=== PATIENT | female | born 1990 | race Caucasian/White ===

== ENCOUNTER 2017-04-09 09:11 | Emergency (ER) | payer OTHER ==
[~2017-04-09] VITALS: Ht 162.6 cm; Wt 132.0 kg
[~2017-04-09 09:11] MED LIST: DOCU-138 PO; FERR-63 PO; IBUP-779 PO
[2017-04-09 10:30] LABS: CLARITY URINE CLOUDY (CLEAR); COLOR URINE DARK YELLOW (YELLOW); GLUCOSE URINE NEGATIVE (NEGATIVE); KETONES URINE NEGATIVE (NEGATIVE); LEUKOCYTE ESTERASE URINE 3+ (NEGATIVE); NITRITE URINE NEGATIVE (NEGATIVE); OCCULT BLOOD URINE 3+ (NEGATIVE); PROTEIN URINE TRACE (NEGATIVE); UROBILINOGEN URINE 0.2 E.U./dL (0.2-1.0)
[2017-04-09 11:02] VITALS: BP 134/80
== END 2017-04-09 11:04 | disposition home or self-care (01) ==
LOC: ER 09:44
DX: N39.0 Urinary tract infection, site not specified (principal)
CPT/HCPCS: 81001; 81025; 99283; Z7610

== ENCOUNTER 2018-11-17 07:44 | Inpatient (IN) | payer MEDICAID ==
[~2018-11-17] VITALS: Ht 162.6 cm; Wt 142.9 kg
[2018-11-17] MEDS ORDERED: LACTATED RINGERS 1,000 ML IV SCH (08:15)
[2018-11-17 08:44] LABS: UCG SCREEN NEGATIVE
[2018-11-17] MEDS ORDERED: AMLO10TA80 PO (10:20)
[2018-11-17] MEDS ORDERED: HYDR25TA PO (10:20)
[2018-11-17] MEDS ORDERED: CEFOXITIN SODIUM 2 G in DEXT 5% WATER 100 ML IV STA (10:42)
[2018-11-17] MEDS ORDERED: INDOCYANINE GREEN 25 MG VIAL IV ONE (10:53)
[2018-11-17] MEDS ORDERED: LIDOCAINE HCL 1% 20ML VIAL (Pyxis) INJ ONE ×2 (10:53→11:39)
[2018-11-17] MEDS ORDERED: SKIN ADHESIVE 0.7 GM EA TOP ONE (10:53)
[2018-11-17] MEDS ORDERED: BACITRACIN 50,000 UNITS/VIAL ONE (10:53)
[2018-11-17] MEDS ORDERED: BUPIVACAINE HCL/PF 0.5% (5MG/ML) 10ML ONE (10:53)
[2018-11-17] MEDS ORDERED: NORMAL SALINE 0.9% 10 ML SYR ONE (10:53)
[2018-11-17] MEDS ORDERED: FENTANYL CITRATE/PF 50MCG/ML 2ML VIAL ONE (11:38)
[2018-11-17] MEDS ORDERED: PROPOFOL 200MG/20ML VIAL IV ONE (11:38)
[2018-11-17] MEDS ORDERED: ROCURONIUM BROMIDE 10MG/ML VIAL 5ML IV ONE ×2 (11:38→12:37)
[2018-11-17] MEDS ORDERED: ONDANSETRON HCL 4MG/2ML INJ ONE (11:39)
[2018-11-17] MEDS ORDERED: DEXAMETHASONE 4MG/ML 1ML VIAL ONE (11:39)
[2018-11-17] MEDS ORDERED: MIDAZOLAM HCL 2 MG/2 ML VIAL ONE (11:39)
[2018-11-17] MEDS ORDERED: KETOROLAC 30MG/ML VIAL ONE (13:32)
[2018-11-17] MEDS ORDERED: GLYCOPYRROLATE 0.2 MG/ML 2ML VIAL ONE (13:33)
[2018-11-17] MEDS ORDERED: MEPERIDINE HCL/PF 25MG/ML CPJ IV PRN (14:15)
[2018-11-17] MEDS ORDERED: ONDANSETRON HCL 4MG/2ML INJ IV PRN ×2 (14:15→14:45)
[2018-11-17] MEDS ORDERED: HYDROMORPHONE HCL/PF 2MG/ML CPJ IV PRN ×2 (14:15→14:45)
[2018-11-17 16:34] VITALS: BP 115/67
[2018-11-17] MEDS: KETOROLAC 30MG/ML VIAL IV SCH (18:31)
[2018-11-17] MEDS: SODIUM CHLORIDE 0.45% 1,000 ML IV SCH (19:49)
[2018-11-17 20:00] VITALS: BP 114/60
[2018-11-18] VITALS: BP 113/71
[2018-11-18] MEDS: KETOROLAC 30MG/ML VIAL IV SCH ×2 (01:02→05:32)
[2018-11-18 04:00] VITALS: BP 122/71
[2018-11-18] MEDS: SODIUM CHLORIDE 0.45% 1,000 ML IV SCH (05:31)
[2018-11-18 08:00] VITALS: BP 117/67
[2018-11-18 08:20] VITALS: BP 117/67
[2018-11-18] MEDS ORDERED: AMLODIPINE 10MG TABLET PO SCH (09:00)
[2018-11-18] MEDS ORDERED: HYDROCHLOROTHIAZIDE 25MG TABLET PO SCH (09:00)
[2018-11-18 09:43] VITALS: BP 117/67
== END 2018-11-18 11:06 | disposition home or self-care (01) | DRG 263 ==
LOC: OR 07:44 → 6EST 17:57
PROVIDERS: ADMIT Specialist; ATTEND Specialist
PROC: 0FT44ZZ Resection of Gallbladder, Percutaneous Endoscopic Approach (ICD-10-PCS; principal; 2018-11-17)
PROC: 8E0W4CZ Robotic Assisted Procedure of Trunk Region, Percutaneous Endoscopic Approach (ICD-10-PCS; 2018-11-17)
DX: K80.10 Calculus of gallbladder with chronic cholecystitis without obstruction (principal); E66.01 Morbid (severe) obesity due to excess calories; I10 Essential (primary) hypertension; Z79.899 Other long term (current) drug therapy; Z68.43 Body mass index [BMI] 50.0-59.9, adult
CPT/HCPCS: 81025; 88304; J0694; J1100; J1170; J1885; J2250; J2405; J2704; J3010; J3490; J7060; Q9957